=== PATIENT | female | born 1950 | race Hispanic/Latino ===

== ENCOUNTER 2024-05-30 23:28 | Inpatient (IN) | payer MEDICARE, OTHER ==
[2024-05-31] MEDS ORDERED: Moisturizing Cream (Eucerin) 113 GM JAR TOP PRN (00:21)
[2024-05-31] MEDS ORDERED: Ondansetron ODT 4 MG TAB PO PRN (00:21)
[2024-05-31] MEDS ORDERED: diphenhydrAMINE 25 MG CAP PO PRN (00:21)
[2024-05-31] MEDS ORDERED: Calcium Carbonate 500 MG ChewTAB PO PRN (00:21)
[2024-05-31] MEDS ORDERED: Bisacodyl 5 MG TAB PO PRN (00:21)
[2024-05-31] MEDS ORDERED: Dextrose 50% Abboject 50 ML SYRINGE SLOW IVP PRN (00:21)
[2024-05-31] MEDS ORDERED: Communication Order-Pharmacy FS PRN (00:21)
[2024-05-31] MEDS ORDERED: Guaifenesin DM 100-10/5 ML UDCUP PO PRN (00:21)
[2024-05-31] MEDS ORDERED: Sodium Chloride 0.65% Nasal 44 ML BOT EA NARE PRN (00:21)
[2024-05-31] MEDS ORDERED: Loratadine 10 MG TAB PO PRN (00:21)
[2024-05-31] MEDS ORDERED: Senokot S 8.6-50 MG TAB PO PRN (00:21)
[2024-05-31] MEDS ORDERED: Glucagon 1 MG/ML KIT IM PRN (00:21)
[2024-05-31] MEDS ORDERED: Artificial Tear Ophth Sol 15 ML BOT EA EYE PRN (00:21)
[2024-05-31] MEDS ORDERED: traMADol HCl 50 MG TAB PO PRN (00:21)
[2024-05-31] MEDS ORDERED: Insulin Lispro 100 UNIT/ML 10 ML VIAL SC PRN ×2 (00:21)
[2024-05-31] MEDS ORDERED: Dextrose 5% in Water 1,000 ML IV PRN (00:21)
[2024-05-31] MEDS ORDERED: Acetaminophen 325 MG TAB PO PRN (00:21)
[2024-05-31] MEDS ORDERED: traZODone HCl 50 MG TAB PO PRN (00:26)
[2024-05-31 00:43] VITALS: BMI 28.7
[2024-05-31] MEDS: Gabapentin 400 MG CAP PO SCH ×2 (00:52→08:20)
[2024-05-31 03:15] LABS: #Basophils 0.03 10x3/uL (0.0-0.2); #Eosinophils 0.17 10x3/uL (0.0-0.5); #Monocytes 0.53 10x3/uL (0.0-1.1); #Neutrophils 3.06 10x3/uL (1.5-8.4); %Basophils 0.6 % (0.0-2.0); %Eosinophils 3.5 % (0.0-6.0); %Lymphocytes 20.8 % (18.0-47.0); %Neutrophils 63.7 % (40.0-75.0); Hematocrit 35.2 % (34.9-44.5); Hemoglobin 11.1 g/dL (12.0-15.5); Mean Corpuscular HGB CONC 31.5 g/dL (32.0-36.0); Mean Corpuscular Hemoglobin 28.2 pg (27.0-33.0); Mean Corpuscular Volume 89.6 fL (81.6-98.3); Mean Platelet Volume 9.6 fL (7.4-10.4); Platelet Count 249 10x3/uL (150-450); RBC Distribution Width 13.2 % (11.5-14.5); Red Blood Cell (RBC) Count 3.93 10x6/uL (3.90-5.03); White Blood Cell (WBC) Count 4.8 10x3/uL (3.5-10.5)
[2024-05-31 04:01] LABS: Anion Gap 12 mmol/L (10-20); BUN (Urea Nitrogen) 10 mg/dL (9.8-20.1); Calc. Creatinine Clearance 69 mL/min (70-130); Carbon Dioxide 24 mmol/L (23-31); Chloride 109 mmol/L (98-107); Estimated GFR 79; Glucose 107 mg/dL (83-110); Potassium 4.4 mmol/L (3.5-5.1); Sodium 141 mmol/L (136-145)
[2024-05-31 05:36] VITALS: TEMP 98.3
[2024-05-31] MEDS: Famotidine 20 MG TAB PO SCH (08:20)
[2024-05-31] MEDS: metFORMIN 500 MG TAB PO SCH (08:20)
[2024-05-31] MEDS: Valsartan 80 MG TAB PO SCH (08:20)
[2024-05-31] MEDS: Enoxaparin 40 MG (0.4 mL) SYRINGE SC SCH (08:21)
[2024-05-31] MEDS: CeleCOXIB 100 MG CAP PO SCH (08:21)
[2024-05-31] MEDS: Venlafaxine 75 MG TAB PO SCH (08:26)
[2024-05-31 08:31] VITALS: BP 142/69
[2024-05-31] MEDS ORDERED: cefTRIAXone\\ROCEPHIN 2 GM in Sodium Chloride 0.9% 100 ML IVPB SCH (20:30)
[2024-05-31] MEDS ORDERED: Venlafaxine 75 MG TAB PO SCH (21:00)
[2024-05-31] MEDS ORDERED: Atorvastatin Calcium 10 MG TAB PO SCH (21:00)
== END 2024-05-31 10:37 | disposition home or self-care (01) | DRG 690 ==
LOC: CSHTELE 23:28
PROVIDERS: ADMIT Family Medicine; ATTEND Internal Medicine
DX: N39.0 Urinary tract infection, site not specified (principal); D84.9 Immunodeficiency, unspecified; L40.50 Arthropathic psoriasis, unspecified; E11.9 Type 2 diabetes mellitus without complications; I10 Essential (primary) hypertension; E78.5 Hyperlipidemia, unspecified; Z88.8 Allergy status to other drugs, medicaments and biological substances; Z79.899 Other long term (current) drug therapy; Z79.84 Long term (current) use of oral hypoglycemic drugs
CPT/HCPCS: 36415; 36416; 80048; 83605; 84145; 85025; J1650